=== PATIENT | male | born 1985 ===

== ENCOUNTER 2018-04-19 07:31 | Emergency (ER) | payer OTHER ==
[2018-04-19 07:36] VITALS: O2SAT 99; BMI 30.9
--- NOTE | 2018-04-19 08:24 | ED PDOC ---
HPI: CCC, URI, Sore Throat Time Seen by Provider: 04/19/18 08:02 Chief Complaint (Nursing): ENT Problem History Per: Patient (right ear pain for few days. no fever or URI symptoms. using OTC topical ear drops without relief. ) History/Exam Limitations: no limitations Past Medical History Reviewed: Historical Data, Nursing Documentation, Vital Signs Vital Signs: Last Vital Signs Temp 98.5 F 04/19/18 07:35 Pulse 64 04/19/18 07:35 Resp 20 04/19/18 07:35 BP 125/78 04/19/18 07:35 Pulse Ox 99 04/19/18 07:35 - Medical History PMH: No Chronic Diseases - Surgical History Surgical History: No Surg Hx - Family History Family History: States: No Known Family Hx - Living Arrangements Living Arrangements: With Family - Social History Current smoker - smoking cessation education provided: No Alcohol: Occasional Drugs: Denies - Home Medications Home Medications: Ambulatory Orders Medication Instructions Recorded Neomycin/Polymyxin/Hydrocort 5 drop TOP QID #1 bottle 04/19/18 [Cortisporin Otic Soln] - Allergies Allergies/Adverse Reactions: Allergies Allergy/AdvReac Type Severity Reaction Status Date / Time No Known Allergies Allergy Verified 04/19/18 08:14 Review of Systems ROS Statement: Except As Marked, All Systems Reviewed And Found Negative Constitutional: Negative for: Fever ENT: Positive for: Ear Pain. Negative for: Ear Discharge, Nose Pain, Nose Discharge Cardiovascular: Negative for: Chest Pain Respiratory: Negative for: Cough, Shortness of Breath Physical Exam - Reviewed Nursing Documentation Reviewed: Yes Vital Signs Reviewed: Yes - Physical Exam Appears: Positive for: Well, Non-toxic, No Acute Distress Skin: Positive for: Normal Color, Warm, DRY Eye Exam: Positive for: EOMI, Normal appearance, PERRL ENT: Positive for: Normal ENT Inspection, TM Is/Are (normal) Neck: Positive for: Normal Extremity: Positive for: Normal ROM - ECG O2 Sat by Pulse Oximetry: 99 Disposition - Clinical Impression Clinical Impression: Right ear pain - Patient ED Disposition Is Patient to be Admitted: No Doctor Will See Patient In The: Office Counseled Patient/Family Regarding: Diagnosis, Need For Followup, Rx Given - Disposition Referrals: [facility] [Outside] [facility] [Outside] [facility] [Outside] Disposition: Routine/Home Disposition Time: 08:15 Condition: STABLE Prescriptions: Neomycin/Polymyxin/Hydrocort [Cortisporin Otic Soln] 5 drop TOP QID #1 bottle Instructions: Outer Ear Infection Forms: [facility] (Frisian), [facility] ED School/Work Excuse Print Language: MONEGASQUE - POA Present On Arrival: None
[2018-04-19 09:24] VITALS: BP 125/76; PULSE 60; RESP 16; TEMP 98.2
== END 2018-04-19 08:45 | disposition home or self-care (01) ==
LOC: MERGE 07:31 → H.ER 07:31
DX: H92.01 Otalgia, right ear (principal)